=== PATIENT | male | born 1965 | race Hispanic/Latino ===

== ENCOUNTER 2017-12-03 18:24 | Emergency (ER) | payer SELFPAY ==
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
== END 2017-12-03 20:45 | disposition home or self-care (01) ==
LOC: ER 18:24
DX: M50.10 Cervical disc disorder with radiculopathy, unspecified cervical region (principal); V89.2XXA Person injured in unspecified motor-vehicle accident, traffic, initial encounter
CPT/HCPCS: 72125; 99284